=== PATIENT | male | born 2000 | race Hispanic/Latino ===

== ENCOUNTER 2018-07-06 11:45 | Emergency (ER) | payer OTHER ==
[2018-07-06 11:52] VITALS: BMI 22.3
[2018-07-06 11:54] VITALS: TEMP 98.4; O2SAT 99
--- NOTE | 2018-07-06 13:17 | RAD ---
Date of service: 07/06/2018 HISTORY: cough, fever, phlegm COMPARISON: No prior. TECHNIQUE: Chest PA and lateral FINDINGS: LUNGS: No active pulmonary disease. PLEURA: No significant pleural effusion identified. No pneumothorax apparent. CARDIOVASCULAR: No aortic atherosclerotic calcification present. Normal cardiac size. No pulmonary vascular congestion. OSSEOUS STRUCTURES: No significant abnormalities. VISUALIZED UPPER ABDOMEN: Normal. OTHER FINDINGS: None. IMPRESSION: No active disease.
--- NOTE | 2018-07-06 13:19 | ED PDOC ---
HPI: Influenza Time Seen by Provider: 07/06/18 12:21 Chief Complaint: Cough, Cold, Congestion Chief Complaint (Provider): Flu-like Symptoms History Per: Patient Exam Limitations: no limitations Onset/Duration Of Symptoms: Days (x1 week) Additional complaint(s):: 18 year old male presents to the ED for evaluation of throat pain, intermittent fever t-max 100.5, headache, cough productive of green phlegm, and chest pain for one week. He notes four days ago presenting to his school's clinic for the same symptoms where he tested negative for strep, was not tested for the flu, and was put on antibiotics. As per his mother who is here with him from [place], she states one week ago he was with a friend who has mono, and is concerned he may have it as well. He reports last taking Tylenol/Motrin approximately two hours ago with minimal relief. PMD: [place] Past Medical History Reviewed: Historical Data, Nursing Documentation, Vital Signs Vital Signs: Last Vital Signs Temp 98.4 F 07/06/18 11:53 Pulse 102 H 07/06/18 11:53 Resp 20 07/06/18 11:53 BP 123/56 L 07/06/18 11:53 Pulse Ox 99 07/06/18 11:53 - Medical History PMH: No Chronic Diseases - Surgical History Other surgeries: rt rib surgery, rt ulnar transposition - Family History Family History: States: Unknown Family Hx - Social History Current smoker - smoking cessation education provided: No Alcohol: Social Drugs: Denies - Immunization History Hx Influenza Vaccination: No ("does not take flu shot") - Allergies Allergies/Adverse Reactions: Allergies Allergy/AdvReac Type Severity Reaction Status Date / Time No Known Allergies Allergy Verified 07/06/18 11:59 Review of Systems ROS Statement: Except As Marked, All Systems Reviewed And Found Negative Constitutional: Positive for: Fever (t-max 100.5) ENT: Positive for: Throat Pain Cardiovascular: Positive for: Chest Pain Respiratory: Positive for: Cough, Sputum (green) Neurological: Positive for: Headache Physical Exam - Reviewed Nursing Documentation Reviewed: Yes Vital Signs Reviewed: Yes - Physical Exam Appears: Positive for: No Acute Distress Head Exam: Positive for: ATRAUMATIC, NORMOCEPHALIC Skin: Positive for: Normal Color, Warm, Dry Eye Exam: Positive for: Normal appearance ENT: Positive for: Normal ENT Inspection. Negative for: Pharyngeal Erythema, Tonsillar Exudate, Tonsillar Swelling Cardiovascular/Chest: Positive for: Regular Rate, Rhythm Respiratory: Positive for: Normal Breath Sounds Neurologic/Psych: Positive for: Alert, Oriented (x3) Medical Decision Making Medical Decision Making: Time: 1258 Initial Impression: flu-like symptoms Initial Plan: --CMP --CBC with differential --CXR --Flu swab --[place] swab CXR, CBC, CMP, influenza, mono - Negative/Normal Scribe Attestation: Documented by Lisy Tolliver, acting as a scribe for Mckenzie Yanes PA-C Provider Scribe Attestation: All medical record entries made by the Scribe were at my direction and personally dictated by me. I have reviewed the chart and agree that the record accurately reflects my personal performance of the history, physical exam, medical decision making, and the department course for this patient. I have also personally directed, reviewed, and agree with the discharge instructions and disposition. - Laboratory Results Result Diagrams: 07/06/18 13:10 12 13:10 - ECG O2 Sat by Pulse Oximetry: 99 (RA) Pulse Ox Interpretation: Normal Disposition - Clinical Impression Clinical Impression: Viral illness - Patient ED Disposition Is Patient to be Admitted: No Counseled Patient/Family Regarding: Diagnosis, Need For Followup - Disposition Disposition: Routine/Home Disposition Time: 14:18 Condition: GOOD Instructions: Viral Syndrome (DC) Forms: [employer] ([place])
[2018-07-06 13:26] LABS: BASO % 0.7 % (0.0-2.0); EOS # 0.3 K/uL (0.0-0.7); EOS % 4.8 % (0.0-4.0); HEMOGLOBIN 14.6 g/dL (12.0-18.0); LYMPH # 1.7 K/uL (1.0-4.3); LYMPH % 23.6 % (20.0-40.0); MEAN CELL VOLUME 96.1 fl (80.0-94.0); MEAN CORPUSCULAR HEMOGLOBIN 32.5 pg (27.0-31.0); MEAN CORPUSCULAR HGB CONC 33.9 g/dL (33.0-37.0); MEAN PLATELET VOLUME 8.5 fl (7.2-11.7); MONO # 1.2 K/uL (0.0-0.8); MONO % 17.2 % (0.0-10.0); NEUT # 3.8 K/uL (1.8-7.0); NEUT % 53.7 % (50.0-75.0); NRBC % 0.1 % (0.0-0.0); RBC 4.49 Mil/uL (4.40-5.90); RED CELL DISTRIBUTION WIDTH 12.2 % (11.5-14.5); WHITE BLOOD COUNT 7.1 K/uL (4.8-10.8)
[2018-07-06 13:31] LABS: ALB/GLOB RATIO 1.3 (1.0-2.1); ALBUMIN 4.3 g/dL (3.5-5.0); ALT/SGPT 26 U/L (21-72); AST/SGOT 24 U/L (17-59); BLOOD UREA NITROGEN 13 mg/dl (9-20); CALCIUM 9.4 mg/dL (8.4-10.2); GFR NON-AFRICAN AMERICAN > 60
[2018-07-06 14:37] VITALS: BP 126/71; PULSE 93; RESP 16
== END 2018-07-06 14:36 | disposition home or self-care (01) ==
LOC: H.ER 11:45
DX: B34.9 Viral infection, unspecified (principal)